=== PATIENT | female | born 1965 | race Hispanic/Latino ===

== ENCOUNTER 2025-02-17 22:05 | Inpatient (IN) | payer OTHER ==
[~2025-02-17] VITALS: Ht 157.5 cm; Wt 93.4 kg
[~2025-02-17 22:05] MED LIST: LOSARTAN POTASS25 MG PO; NAPROXEN250 MG PO
[2025-02-17 22:40] VITALS: RESP 18; TEMP 98.4
[2025-02-17 23:30] VITALS: PULSE 64
[2025-02-18] VITALS (11 sets, daily range): BP systolic 122–159; BP diastolic 67–88; PULSE 50–74; RESP 16–20; TEMP 97.4–98.9; O2SAT 96–100
[2025-02-18 00:06] LABS: BASOPHILS % 0.4 % (0.0-1.0); EOSINOPHILS # (AUTO) 0.2 (0.0-0.4); EOSINOPHILS % 2.2 % (0.0-6.0); HEMATOCRIT 37.1 % (34.2-44.1); HEMOGLOBIN 12.3 g/dL (12.0-16.0); LYMPHOCYTES # (AUTO) 3.8 (1.0-3.2); LYMPHOCYTES % 39.9 % (18.0-39.1); MEAN CORPUSCULAR HEMOGLOBIN 30.1 pg (28-32); MEAN CORPUSCULAR HGB CONC 33.2 g/dL (31-35); MEAN CORPUSCULAR VOLUME 90.9 fL (81-99); MONOCYTES # (AUTO) 0.8 (0.2-0.8); MONOCYTES % 8.3 % (4.4-11.3); NEUTROPHILS # (AUTO) 4.7 (2.1-6.9); PLATELET COUNT 304 x10e3/uL (140-360); RED BLOOD COUNT 4.08 x10e6/uL (3.6-5.1); RED CELL DISTRIBUTION WIDTH 13.2 % (11.7-14.4); WHITE BLOOD COUNT 9.53 x10e3/uL (4.8-10.8)
[2025-02-18] MEDS: Vancomycin IV 1 GM in SODIUM CHLORIDE 0.9% 250ML 250 ML IV SCH (00:19)
[2025-02-18 00:29] LABS: ALBUMIN 3.8 g/dL (3.5-5.0); BILIRUBIN,TOTAL 0.2 mg/dL (0.2-1.2); CALCIUM 9.2 mg/dL (8.4-10.2); CREATININE, SERUM 1.09 mg/dL (0.57-1.11); TOTAL PROTEIN 7.8 g/dL (6.5-8.1)
[2025-02-18] MEDS: Morphine 2mg Syringe 2 MG/ML SYR IV PRN (03:42)
[2025-02-18] MEDS ORDERED: OLMESARTAN MEDO20 MG PO (04:13)
[2025-02-18] MEDS ORDERED: HYDROCHLOROTH12.5 MG PO (04:13)
[2025-02-18] MEDS: ACETAMINOPHEN 325 MG TAB PO PRN (09:58)
[2025-02-19] VITALS (7 sets, daily range): BP systolic 118–130; BP diastolic 71–87; PULSE 51–72; RESP 18–19; TEMP 98.1–98.9; O2SAT 95–100
[2025-02-19 05:15] LABS: BASOPHILS # (AUTO) 0.1 (0.0-0.1); BASOPHILS % 0.6 % (0.0-1.0); EOSINOPHILS # (AUTO) 0.3 (0.0-0.4); EOSINOPHILS % 3.4 % (0.0-6.0); HEMATOCRIT 36.6 % (34.2-44.1); HEMOGLOBIN 12.2 g/dL (12.0-16.0); LYMPHOCYTES # (AUTO) 2.9 (1.0-3.2); LYMPHOCYTES % 34.1 % (18.0-39.1); MEAN CORPUSCULAR HEMOGLOBIN 30.2 pg (28-32); MEAN CORPUSCULAR HGB CONC 33.3 g/dL (31-35); MEAN CORPUSCULAR VOLUME 90.6 fL (81-99); MONOCYTES # (AUTO) 0.6 (0.2-0.8); MONOCYTES % 7.6 % (4.4-11.3); NEUTROPHILS # (AUTO) 4.6 (2.1-6.9); NEUTROPHILS % 54.1 % (38.7-80.0); PLATELET COUNT 306 x10e3/uL (140-360); RED BLOOD COUNT 4.04 x10e6/uL (3.6-5.1); RED CELL DISTRIBUTION WIDTH 12.9 % (11.7-14.4); WHITE BLOOD COUNT 8.44 x10e3/uL (4.8-10.8)
[2025-02-19 05:48] LABS: ALBUMIN 3.4 g/dL (3.5-5.0); ALBUMIN/GLOBULIN RATIO 0.9 (0.8-2.0); BILIRUBIN,TOTAL 0.6 mg/dL (0.2-1.2); CALCIUM 8.5 mg/dL (8.4-10.2); CREATININE, SERUM 1.04 mg/dL (0.57-1.11); TOTAL PROTEIN 7.1 g/dL (6.5-8.1)
[2025-02-19] MEDS: ONDANSETRON HCL INJ 2MG/ML 2ML 2 MG/ML VIAL IV PRN (21:32)
[2025-02-20] VITALS (8 sets, daily range): BP systolic 113–134; BP diastolic 61–82; PULSE 51–80; RESP 17–21; TEMP 97.9–99.5; O2SAT 95–100
[2025-02-20] MEDS ORDERED: HYDRALAZINE HCL 20 MG/ML VIAL IV PRN (00:45)
[2025-02-20] MEDS: OLMESARTAN 20 MG TAB PO SCH (08:44)
[2025-02-21] VITALS (9 sets, daily range): BP systolic 100–142; BP diastolic 52–78; PULSE 51–74; RESP 18–20; TEMP 97.6–98.3; O2SAT 95–100
[2025-02-22 04:00] VITALS: BP 112/68; PULSE 52; RESP 17; TEMP 97.5; O2SAT 94
[2025-02-22 06:10] LABS: BASOPHILS % 0.5 % (0.0-1.0); EOSINOPHILS # (AUTO) 0.4 (0.0-0.4); HEMATOCRIT 35.9 % (34.2-44.1); HEMOGLOBIN 11.7 g/dL (12.0-16.0); LYMPHOCYTES # (AUTO) 2.5 (1.0-3.2); LYMPHOCYTES % 31.9 % (18.0-39.1); MEAN CORPUSCULAR HEMOGLOBIN 30.3 pg (28-32); MEAN CORPUSCULAR HGB CONC 32.6 g/dL (31-35); MONOCYTES # (AUTO) 0.7 (0.2-0.8); MONOCYTES % 8.3 % (4.4-11.3); NEUTROPHILS # (AUTO) 4.3 (2.1-6.9); PLATELET COUNT 310 x10e3/uL (140-360); RED BLOOD COUNT 3.86 x10e6/uL (3.6-5.1); WHITE BLOOD COUNT 7.87 x10e3/uL (4.8-10.8)
[2025-02-22 06:37] LABS: ANION GAP 13.9 mmol/L (8-16); CALCIUM 8.7 mg/dL (8.4-10.2); POTASSIUM 3.9 mmol/L (3.5-5.1)
[2025-02-22] MEDS: DOXYCYCLINE HYCLATE TABLET 100 MG TAB PO SCH (08:39)
[2025-02-22] MEDS: CEFTRIAXONE 2 GM in SODIUM CHLORIDE 0.9% 100 ML IV SCH (08:41)
[2025-02-22 09:00] VITALS: BP 120/70; PULSE 52; RESP 17; TEMP 97.5; O2SAT 94
[2025-02-22 09:48] VITALS: BP 120/70; PULSE 58; RESP 17; TEMP 98.5; O2SAT 98
[2025-02-22 12:53] VITALS: BP 104/58; PULSE 55; RESP 16; TEMP 98.4; O2SAT 99
[2025-02-22 14:11] LABS: RHEUMATOID FACTOR 11.4 IU/mL (<14.0)
[2025-02-22 20:00] VITALS: BP 119/79; PULSE 57; RESP 18; TEMP 97.7; O2SAT 100
[2025-02-23] VITALS: BP 118/74; PULSE 60; RESP 19; TEMP 97.9; O2SAT 98
[2025-02-23 05:22] VITALS: BP 107/66; PULSE 51; RESP 16; TEMP 97; O2SAT 97
[2025-02-23 06:04] LABS: BASOPHILS # (AUTO) 0.1 (0.0-0.1); BASOPHILS % 0.8 % (0.0-1.0); EOSINOPHILS # (AUTO) 0.4 (0.0-0.4); EOSINOPHILS % 5.4 % (0.0-6.0); HEMATOCRIT 37.7 % (34.2-44.1); HEMOGLOBIN 12.4 g/dL (12.0-16.0); LYMPHOCYTES # (AUTO) 1.8 (1.0-3.2); LYMPHOCYTES % 25.5 % (18.0-39.1); MEAN CORPUSCULAR HEMOGLOBIN 30.2 pg (28-32); MEAN CORPUSCULAR HGB CONC 32.9 g/dL (31-35); MEAN CORPUSCULAR VOLUME 91.7 fL (81-99); MONOCYTES # (AUTO) 0.5 (0.2-0.8); MONOCYTES % 6.8 % (4.4-11.3); NEUTROPHILS # (AUTO) 4.4 (2.1-6.9); NEUTROPHILS % 61.4 % (38.7-80.0); PLATELET COUNT 316 x10e3/uL (140-360); RED BLOOD COUNT 4.11 x10e6/uL (3.6-5.1); RED CELL DISTRIBUTION WIDTH 12.8 % (11.7-14.4); WHITE BLOOD COUNT 7.19 x10e3/uL (4.8-10.8)
[2025-02-23 06:32] LABS: CALCIUM 9.1 mg/dL (8.4-10.2); CREATININE, SERUM 0.99 mg/dL (0.57-1.11)
[2025-02-23 07:30] VITALS: BP 115/69; PULSE 54; RESP 18; TEMP 98.2; O2SAT 97
[2025-02-23] MEDS: HYDROCHLOROTHIAZIDE 25 MG TAB PO SCH (08:26)
[2025-02-23 12:00] VITALS: BP 115/69; PULSE 56; RESP 20; TEMP 97.2; O2SAT 97
[2025-02-23] MEDS ORDERED: ZYVOX600 MG PO (14:45)
[2025-02-23] MEDS ORDERED: LINEZOLID 600 MG TAB PO SCH (17:00)
[2025-02-25 14:12] LABS: cANCA TITER <1:20 titer (Neg:<1:20)
[2025-02-25 15:18] LABS: ATYPICAL pANCA TITER <1:20 titer (Neg:<1:20); pANCA TITER <1:20 titer (Neg:<1:20)
== END 2025-02-23 16:41 | disposition home health service (06) | DRG 603 ==
LOC: ER 23:33 → ERHOLD 02-18 00:53 → MERGE 02-18 00:53 → MED/SURG2 02-18 02:39
PROVIDERS: ADMIT Internal Medicine; ATTEND Internal Medicine
DX: L03.115 Cellulitis of right lower limb (principal); I87.333 Chronic venous hypertension (idiopathic) with ulcer and inflammation of bilateral lower extremity; L97.918 Non-pressure chronic ulcer of unspecified part of right lower leg with other specified severity; I87.2 Venous insufficiency (chronic) (peripheral); I77.6 Arteritis, unspecified; I10 Essential (primary) hypertension; E66.9 Obesity, unspecified; Z68.37 Body mass index [BMI] 37.0-37.9, adult
CPT/HCPCS: 36415; 80048; 80053; 80202; 85025; 86021; 86039; 86140; 86225; 86431; 87040; 87071; 87205; 94799; 99252; 99284; J0696; J2270; J2405; J2543; J7050

== ENCOUNTER → 2025-03-08 | Outpatient (REF) | payer OTHER ==
[~2025-03-08] MED LIST changes: +HYDROCHLOROTH12.5 MG PO; +MINERAL OIL/PETROLAT/GLYCERI 6OZ BTL ONE; +OLMESARTAN MEDO20 MG PO; +ZYVOX600 MG PO
== END ==
LOC: MERGE 02-25 15:00 → WCC 09:59
PROVIDERS: ATTEND Internal Medicine Infectious Disease
DX: I87.331 Chronic venous hypertension (idiopathic) with ulcer and inflammation of right lower extremity (principal); L97.811 Non-pressure chronic ulcer of other part of right lower leg limited to breakdown of skin; S81.801D Unspecified open wound, right lower leg, subsequent encounter; R60.0 Localized edema

== ENCOUNTER → 2025-03-12 | Outpatient (REF) | payer OTHER ==
[~2025-03-12] MED LIST changes: +LIDOCAINE 1% W/EPINEPHRINE 20 ML VIAL ONE; +LIDOCAINE VISC 2% SOLN 15 ML UDC ONE; +LIDOCAINE/PRILOCAINE 2.5-2.5% KIT ONE; -MINERAL OIL/PETROLAT/GLYCERI 6OZ BTL ONE
== END ==
LOC: WCC 11:26
PROVIDERS: ATTEND Internal Medicine Infectious Disease
DX: I87.331 Chronic venous hypertension (idiopathic) with ulcer and inflammation of right lower extremity (principal); L97.811 Non-pressure chronic ulcer of other part of right lower leg limited to breakdown of skin; S81.801D Unspecified open wound, right lower leg, subsequent encounter; R60.0 Localized edema
CPT/HCPCS: 87071; 87075; 87102; 87116; 87205; 87206; 88305

== ENCOUNTER → 2025-03-16 | Outpatient (REF) | payer OTHER ==
[~2025-03-16] MED LIST changes: +COLLAGENASE OINTMENT 30 GM TUBE ONE; -LIDOCAINE 1% W/EPINEPHRINE 20 ML VIAL ONE
== END ==
LOC: WCC 12:26
PROVIDERS: ATTEND Internal Medicine Infectious Disease
DX: I87.331 Chronic venous hypertension (idiopathic) with ulcer and inflammation of right lower extremity (principal); L97.811 Non-pressure chronic ulcer of other part of right lower leg limited to breakdown of skin; S81.801D Unspecified open wound, right lower leg, subsequent encounter; R60.0 Localized edema; B96.89 Other specified bacterial agents as the cause of diseases classified elsewhere

== ENCOUNTER → 2025-03-17 | Outpatient (REF) | payer OTHER ==
[~2025-03-17] MED LIST changes: -COLLAGENASE OINTMENT 30 GM TUBE ONE; -LIDOCAINE VISC 2% SOLN 15 ML UDC ONE; -LIDOCAINE/PRILOCAINE 2.5-2.5% KIT ONE
== END ==
LOC: MRI 10:48
PROVIDERS: ATTEND Nurse Practitioner Family
DX: I87.331 Chronic venous hypertension (idiopathic) with ulcer and inflammation of right lower extremity (principal); L97.811 Non-pressure chronic ulcer of other part of right lower leg limited to breakdown of skin

== ENCOUNTER → 2025-03-18 | Outpatient (REF) | payer OTHER | LOC: WCC 09:45 | PROVIDERS: ATTEND Internal Medicine Infectious Disease | DX: I87.331 Chronic venous hypertension (idiopathic) with ulcer and inflammation of right lower extremity (principal); L97.811 Non-pressure chronic ulcer of other part of right lower leg limited to breakdown of skin; S81.801D Unspecified open wound, right lower leg, subsequent encounter; R60.0 Localized edema; B96.89 Other specified bacterial agents as the cause of diseases classified elsewhere ==

== ENCOUNTER → 2025-03-19 | Outpatient (REF) | payer OTHER ==
[~2025-03-19] MED LIST changes: +COLLAGENASE OINTMENT 30 GM TUBE ONE; +MINERAL OIL/PETROLAT/GLYCERI 6OZ BTL ONE
== END ==
LOC: WCC 10:26
PROVIDERS: ATTEND Internal Medicine Infectious Disease
DX: I87.331 Chronic venous hypertension (idiopathic) with ulcer and inflammation of right lower extremity (principal); L97.811 Non-pressure chronic ulcer of other part of right lower leg limited to breakdown of skin; S81.801D Unspecified open wound, right lower leg, subsequent encounter; R60.0 Localized edema; B96.89 Other specified bacterial agents as the cause of diseases classified elsewhere

== ENCOUNTER → 2025-03-22 | Outpatient (REF) | payer OTHER ==
[~2025-03-22] MED LIST changes: -COLLAGENASE OINTMENT 30 GM TUBE ONE; -MINERAL OIL/PETROLAT/GLYCERI 6OZ BTL ONE; +MUPIROCIN 2% OINT 22 GM TUBE ONE
== END ==
LOC: WCC 12:02
PROVIDERS: ATTEND Internal Medicine Infectious Disease
DX: I87.331 Chronic venous hypertension (idiopathic) with ulcer and inflammation of right lower extremity (principal); L97.811 Non-pressure chronic ulcer of other part of right lower leg limited to breakdown of skin; S81.801D Unspecified open wound, right lower leg, subsequent encounter; B96.89 Other specified bacterial agents as the cause of diseases classified elsewhere

== ENCOUNTER → 2025-03-24 | Outpatient (REF) | payer OTHER ==
[~2025-03-24] MED LIST changes: +COLLAGENASE OINTMENT 30 GM TUBE ONE; -MUPIROCIN 2% OINT 22 GM TUBE ONE
== END ==
LOC: WCC 09:10
PROVIDERS: ATTEND Internal Medicine Infectious Disease
DX: I87.331 Chronic venous hypertension (idiopathic) with ulcer and inflammation of right lower extremity (principal); L97.811 Non-pressure chronic ulcer of other part of right lower leg limited to breakdown of skin; S81.801D Unspecified open wound, right lower leg, subsequent encounter; R60.0 Localized edema; B96.89 Other specified bacterial agents as the cause of diseases classified elsewhere

== ENCOUNTER → 2025-03-26 | Outpatient (REF) | payer OTHER ==
[~2025-03-26] MED LIST changes: -COLLAGENASE OINTMENT 30 GM TUBE ONE
== END ==
LOC: WCC 10:42
PROVIDERS: ATTEND Internal Medicine Infectious Disease
DX: I87.331 Chronic venous hypertension (idiopathic) with ulcer and inflammation of right lower extremity (principal); L97.811 Non-pressure chronic ulcer of other part of right lower leg limited to breakdown of skin; S81.801D Unspecified open wound, right lower leg, subsequent encounter; R60.0 Localized edema; B96.89 Other specified bacterial agents as the cause of diseases classified elsewhere

== ENCOUNTER → 2025-03-29 | Outpatient (REF) | payer OTHER | LOC: WCC 11:25 | PROVIDERS: ATTEND Internal Medicine Infectious Disease | DX: I87.331 Chronic venous hypertension (idiopathic) with ulcer and inflammation of right lower extremity (principal); L97.811 Non-pressure chronic ulcer of other part of right lower leg limited to breakdown of skin; S81.801D Unspecified open wound, right lower leg, subsequent encounter; R60.0 Localized edema ==

== ENCOUNTER → 2025-03-31 | Outpatient (REF) | payer OTHER | LOC: WCC 09:26 | PROVIDERS: ATTEND Internal Medicine Infectious Disease | DX: I87.331 Chronic venous hypertension (idiopathic) with ulcer and inflammation of right lower extremity (principal); L97.811 Non-pressure chronic ulcer of other part of right lower leg limited to breakdown of skin; S81.801D Unspecified open wound, right lower leg, subsequent encounter; R60.0 Localized edema; B96.89 Other specified bacterial agents as the cause of diseases classified elsewhere ==

== ENCOUNTER → 2025-04-02 | Outpatient (REF) | payer OTHER | LOC: WCC 08:55 | PROVIDERS: ATTEND Internal Medicine Infectious Disease | DX: I87.331 Chronic venous hypertension (idiopathic) with ulcer and inflammation of right lower extremity (principal); L97.811 Non-pressure chronic ulcer of other part of right lower leg limited to breakdown of skin; S81.801D Unspecified open wound, right lower leg, subsequent encounter; R60.0 Localized edema ==

== ENCOUNTER → 2025-04-19 | Outpatient (REF) | payer OTHER | LOC: WCC 11:10 | PROVIDERS: ATTEND Internal Medicine Infectious Disease | DX: S81.801D Unspecified open wound, right lower leg, subsequent encounter (principal); R60.0 Localized edema | CPT/HCPCS: 87071; 87075; 87186; 87205 ==

== ENCOUNTER → 2025-04-21 | Outpatient (REF) | payer OTHER ==
[~2025-04-21] MED LIST changes: +COLLAGENASE OINTMENT 30 GM TUBE ONE; +MINERAL OIL/PETROLAT/GLYCERI 6OZ BTL ONE
== END ==
LOC: WCC 13:32
PROVIDERS: ATTEND Internal Medicine Infectious Disease
DX: S81.801D Unspecified open wound, right lower leg, subsequent encounter (principal); R60.0 Localized edema

== ENCOUNTER → 2025-04-23 | Outpatient (REF) | payer OTHER ==
[~2025-04-23] MED LIST changes: -COLLAGENASE OINTMENT 30 GM TUBE ONE; -MINERAL OIL/PETROLAT/GLYCERI 6OZ BTL ONE
== END ==
LOC: WCC 11:51
PROVIDERS: ATTEND Nurse Practitioner Family
DX: S81.801D Unspecified open wound, right lower leg, subsequent encounter (principal); S81.001D Unspecified open wound, right knee, subsequent encounter; R60.0 Localized edema

== ENCOUNTER → 2025-04-26 | Outpatient (CLI) | payer OTHER | LOC: WCC 13:48 | PROVIDERS: ATTEND Internal Medicine Infectious Disease | DX: I87.331 Chronic venous hypertension (idiopathic) with ulcer and inflammation of right lower extremity (principal); L97.811 Non-pressure chronic ulcer of other part of right lower leg limited to breakdown of skin; S81.001D Unspecified open wound, right knee, subsequent encounter; S81.801D Unspecified open wound, right lower leg, subsequent encounter; R60.0 Localized edema ==

== ENCOUNTER → 2025-04-28 | Outpatient (REF) | payer OTHER | LOC: WCC 11:26 | PROVIDERS: ATTEND Internal Medicine Infectious Disease | DX: I87.331 Chronic venous hypertension (idiopathic) with ulcer and inflammation of right lower extremity (principal); L97.811 Non-pressure chronic ulcer of other part of right lower leg limited to breakdown of skin; S81.001D Unspecified open wound, right knee, subsequent encounter; S81.801D Unspecified open wound, right lower leg, subsequent encounter; R60.0 Localized edema | CPT/HCPCS: 83036; 84134 ==

== ENCOUNTER → 2025-04-30 | Outpatient (REF) | payer OTHER | LOC: WCC 11:38 | PROVIDERS: ATTEND Internal Medicine Infectious Disease | DX: I87.331 Chronic venous hypertension (idiopathic) with ulcer and inflammation of right lower extremity (principal); L97.811 Non-pressure chronic ulcer of other part of right lower leg limited to breakdown of skin; S81.801D Unspecified open wound, right lower leg, subsequent encounter; R60.0 Localized edema ==

== ENCOUNTER → 2025-05-03 | Outpatient (REF) | payer OTHER | LOC: WCC 12:24 | PROVIDERS: ATTEND Internal Medicine Infectious Disease | DX: I87.331 Chronic venous hypertension (idiopathic) with ulcer and inflammation of right lower extremity (principal); L97.811 Non-pressure chronic ulcer of other part of right lower leg limited to breakdown of skin; S81.801D Unspecified open wound, right lower leg, subsequent encounter; R60.0 Localized edema; B95.62 Methicillin resistant Staphylococcus aureus infection as the cause of diseases classified elsewhere ==

== ENCOUNTER → 2025-05-05 | Outpatient (REF) | payer OTHER | LOC: WCC 13:55 | PROVIDERS: ATTEND Internal Medicine Infectious Disease | DX: I87.331 Chronic venous hypertension (idiopathic) with ulcer and inflammation of right lower extremity (principal); L97.811 Non-pressure chronic ulcer of other part of right lower leg limited to breakdown of skin; S81.801D Unspecified open wound, right lower leg, subsequent encounter; R60.0 Localized edema; B95.62 Methicillin resistant Staphylococcus aureus infection as the cause of diseases classified elsewhere ==

== ENCOUNTER → 2025-05-10 | Outpatient (REF) | payer OTHER ==
[~2025-05-10] MED LIST changes: +COLLAGENASE OINTMENT 30 GM TUBE ONE; +LIDOCAINE VISC 2% SOLN 15 ML UDC ONE; +LIDOCAINE/PRILOCAINE 2.5-2.5% KIT ONE; +MINERAL OIL/PETROLAT/GLYCERI 6OZ BTL ONE
== END ==
LOC: WCC 11:14
PROVIDERS: ATTEND Internal Medicine Infectious Disease
DX: I87.331 Chronic venous hypertension (idiopathic) with ulcer and inflammation of right lower extremity (principal); L97.811 Non-pressure chronic ulcer of other part of right lower leg limited to breakdown of skin; S81.801D Unspecified open wound, right lower leg, subsequent encounter; R60.0 Localized edema; B95.62 Methicillin resistant Staphylococcus aureus infection as the cause of diseases classified elsewhere

== ENCOUNTER → 2025-05-13 | Outpatient (REF) | payer OTHER ==
[~2025-05-13] MED LIST changes: -COLLAGENASE OINTMENT 30 GM TUBE ONE; -LIDOCAINE VISC 2% SOLN 15 ML UDC ONE; -LIDOCAINE/PRILOCAINE 2.5-2.5% KIT ONE; -MINERAL OIL/PETROLAT/GLYCERI 6OZ BTL ONE
== END ==
LOC: WCC 15:24
PROVIDERS: ATTEND Internal Medicine Infectious Disease
DX: I87.331 Chronic venous hypertension (idiopathic) with ulcer and inflammation of right lower extremity (principal); L97.811 Non-pressure chronic ulcer of other part of right lower leg limited to breakdown of skin; S81.001D Unspecified open wound, right knee, subsequent encounter; S81.801D Unspecified open wound, right lower leg, subsequent encounter; R60.0 Localized edema; B95.62 Methicillin resistant Staphylococcus aureus infection as the cause of diseases classified elsewhere

== ENCOUNTER → 2025-05-17 | Outpatient (REF) | payer OTHER | LOC: WCC 11:07 | PROVIDERS: ATTEND Internal Medicine Infectious Disease | DX: I87.331 Chronic venous hypertension (idiopathic) with ulcer and inflammation of right lower extremity (principal); L97.811 Non-pressure chronic ulcer of other part of right lower leg limited to breakdown of skin; S81.801D Unspecified open wound, right lower leg, subsequent encounter; S81.001D Unspecified open wound, right knee, subsequent encounter; R60.0 Localized edema; B95.62 Methicillin resistant Staphylococcus aureus infection as the cause of diseases classified elsewhere ==

== ENCOUNTER → 2025-05-19 | Outpatient (REF) | payer OTHER | LOC: WCC 11:57 | PROVIDERS: ATTEND Internal Medicine Infectious Disease | DX: I87.331 Chronic venous hypertension (idiopathic) with ulcer and inflammation of right lower extremity (principal); L97.811 Non-pressure chronic ulcer of other part of right lower leg limited to breakdown of skin; S81.001D Unspecified open wound, right knee, subsequent encounter; S81.801D Unspecified open wound, right lower leg, subsequent encounter; R60.0 Localized edema; B95.62 Methicillin resistant Staphylococcus aureus infection as the cause of diseases classified elsewhere ==

== ENCOUNTER → 2025-05-21 | Outpatient (REF) | payer OTHER | LOC: WCC 09:38 | PROVIDERS: ATTEND Internal Medicine Infectious Disease | DX: I87.331 Chronic venous hypertension (idiopathic) with ulcer and inflammation of right lower extremity (principal); L97.811 Non-pressure chronic ulcer of other part of right lower leg limited to breakdown of skin; S81.001D Unspecified open wound, right knee, subsequent encounter; S81.801D Unspecified open wound, right lower leg, subsequent encounter; R60.0 Localized edema; B95.62 Methicillin resistant Staphylococcus aureus infection as the cause of diseases classified elsewhere ==

== ENCOUNTER → 2025-05-24 | Outpatient (REF) | payer OTHER | LOC: WCC 11:00 | PROVIDERS: ATTEND Internal Medicine Infectious Disease | DX: I87.331 Chronic venous hypertension (idiopathic) with ulcer and inflammation of right lower extremity (principal); L97.811 Non-pressure chronic ulcer of other part of right lower leg limited to breakdown of skin; S81.001D Unspecified open wound, right knee, subsequent encounter; S81.801D Unspecified open wound, right lower leg, subsequent encounter; R60.0 Localized edema; B95.62 Methicillin resistant Staphylococcus aureus infection as the cause of diseases classified elsewhere ==

== ENCOUNTER → 2025-05-26 | Outpatient (REF) | payer OTHER | LOC: WCC 09:46 | PROVIDERS: ATTEND Internal Medicine Infectious Disease | DX: I87.331 Chronic venous hypertension (idiopathic) with ulcer and inflammation of right lower extremity (principal); L97.811 Non-pressure chronic ulcer of other part of right lower leg limited to breakdown of skin; S81.001D Unspecified open wound, right knee, subsequent encounter; S81.801D Unspecified open wound, right lower leg, subsequent encounter; R60.0 Localized edema; B95.62 Methicillin resistant Staphylococcus aureus infection as the cause of diseases classified elsewhere ==

== ENCOUNTER → 2025-05-28 | Outpatient (REF) | payer OTHER | LOC: WCC 10:26 | PROVIDERS: ATTEND Internal Medicine Infectious Disease | DX: I87.331 Chronic venous hypertension (idiopathic) with ulcer and inflammation of right lower extremity (principal); L97.811 Non-pressure chronic ulcer of other part of right lower leg limited to breakdown of skin; S81.001D Unspecified open wound, right knee, subsequent encounter; S81.801D Unspecified open wound, right lower leg, subsequent encounter; R60.0 Localized edema; B95.62 Methicillin resistant Staphylococcus aureus infection as the cause of diseases classified elsewhere ==

== ENCOUNTER → 2025-05-31 | Outpatient (REF) | payer OTHER ==
[2025-05-31 14:48] LABS: BASOPHILS % 0.7 % (0.0-1.0); EOSINOPHILS % 2.6 % (0.0-6.0); LYMPHOCYTES % 44.6 % (18.0-39.1); MONOCYTES % 7.9 % (4.4-11.3); NEUTROPHILS % 44.0 % (38.7-80.0); RED CELL DISTRIBUTION WIDTH 16.5 % (11.7-14.4)
[2025-06-01 16:33] LABS: EST GLOMERULAR FILTRATION RATE 35.0 ML/MIN (>=60)
== END ==
LOC: WCC 10:30
PROVIDERS: ATTEND Internal Medicine Infectious Disease
DX: I87.331 Chronic venous hypertension (idiopathic) with ulcer and inflammation of right lower extremity (principal); L97.811 Non-pressure chronic ulcer of other part of right lower leg limited to breakdown of skin; S81.801D Unspecified open wound, right lower leg, subsequent encounter
CPT/HCPCS: 36415; 80048; 83880; 85025

== ENCOUNTER → 2025-06-02 | Outpatient (REF) | payer OTHER | LOC: WCC 09:24 | PROVIDERS: ATTEND Internal Medicine Infectious Disease | DX: I87.331 Chronic venous hypertension (idiopathic) with ulcer and inflammation of right lower extremity (principal); L97.811 Non-pressure chronic ulcer of other part of right lower leg limited to breakdown of skin; S81.001D Unspecified open wound, right knee, subsequent encounter; S81.801D Unspecified open wound, right lower leg, subsequent encounter; R60.0 Localized edema; B95.62 Methicillin resistant Staphylococcus aureus infection as the cause of diseases classified elsewhere ==

== ENCOUNTER → 2025-06-04 | Outpatient (REF) | payer OTHER | LOC: WCC 08:40 | PROVIDERS: ATTEND Internal Medicine Infectious Disease | DX: I87.331 Chronic venous hypertension (idiopathic) with ulcer and inflammation of right lower extremity (principal); L97.811 Non-pressure chronic ulcer of other part of right lower leg limited to breakdown of skin; S81.801D Unspecified open wound, right lower leg, subsequent encounter ==

== ENCOUNTER → 2025-06-07 | Outpatient (REF) | payer OTHER | LOC: WCC 13:50 | PROVIDERS: ATTEND Internal Medicine Infectious Disease | DX: I87.331 Chronic venous hypertension (idiopathic) with ulcer and inflammation of right lower extremity (principal); L97.811 Non-pressure chronic ulcer of other part of right lower leg limited to breakdown of skin; S81.801D Unspecified open wound, right lower leg, subsequent encounter ==

== ENCOUNTER → 2025-06-09 | Outpatient (REF) | payer OTHER | LOC: WCC 15:04 | PROVIDERS: ATTEND Internal Medicine Infectious Disease | DX: I87.331 Chronic venous hypertension (idiopathic) with ulcer and inflammation of right lower extremity (principal); L97.811 Non-pressure chronic ulcer of other part of right lower leg limited to breakdown of skin; S81.001D Unspecified open wound, right knee, subsequent encounter; S81.801D Unspecified open wound, right lower leg, subsequent encounter; B95.62 Methicillin resistant Staphylococcus aureus infection as the cause of diseases classified elsewhere | CPT/HCPCS: 87102; 87116; 87206 ==

== ENCOUNTER → 2025-06-11 | Outpatient (REF) | payer OTHER | LOC: WCC 09:01 | PROVIDERS: ATTEND Internal Medicine Infectious Disease | DX: S81.801D Unspecified open wound, right lower leg, subsequent encounter (principal) ==

== ENCOUNTER → 2025-06-14 | Outpatient (REF) | payer OTHER | LOC: WCC 09:53 | PROVIDERS: ATTEND Internal Medicine Infectious Disease | DX: I87.331 Chronic venous hypertension (idiopathic) with ulcer and inflammation of right lower extremity (principal); L97.811 Non-pressure chronic ulcer of other part of right lower leg limited to breakdown of skin; S81.001D Unspecified open wound, right knee, subsequent encounter; S81.801D Unspecified open wound, right lower leg, subsequent encounter; R60.0 Localized edema; B95.62 Methicillin resistant Staphylococcus aureus infection as the cause of diseases classified elsewhere ==

== ENCOUNTER → 2025-06-16 | Outpatient (REF) | payer OTHER | LOC: WCC 15:03 | PROVIDERS: ATTEND Internal Medicine Infectious Disease | DX: I87.331 Chronic venous hypertension (idiopathic) with ulcer and inflammation of right lower extremity (principal); L97.811 Non-pressure chronic ulcer of other part of right lower leg limited to breakdown of skin; S81.801D Unspecified open wound, right lower leg, subsequent encounter ==

== ENCOUNTER → 2025-06-18 | Outpatient (REF) | payer OTHER | LOC: WCC 12:04 | PROVIDERS: ATTEND Internal Medicine Infectious Disease | DX: S81.801D Unspecified open wound, right lower leg, subsequent encounter (principal); S81.001D Unspecified open wound, right knee, subsequent encounter; R60.0 Localized edema; B95.62 Methicillin resistant Staphylococcus aureus infection as the cause of diseases classified elsewhere ==

== ENCOUNTER → 2025-06-21 | Outpatient (REF) | payer OTHER | LOC: WCC 10:46 | PROVIDERS: ATTEND Internal Medicine Infectious Disease | DX: I87.331 Chronic venous hypertension (idiopathic) with ulcer and inflammation of right lower extremity (principal); L97.811 Non-pressure chronic ulcer of other part of right lower leg limited to breakdown of skin; S81.001D Unspecified open wound, right knee, subsequent encounter; S81.801D Unspecified open wound, right lower leg, subsequent encounter; R60.0 Localized edema; B95.62 Methicillin resistant Staphylococcus aureus infection as the cause of diseases classified elsewhere ==

== ENCOUNTER → 2025-06-25 | Outpatient (REF) | payer OTHER | LOC: WCC 10:09 | PROVIDERS: ATTEND Internal Medicine Infectious Disease | DX: S81.001D Unspecified open wound, right knee, subsequent encounter (principal) ==

== ENCOUNTER → 2025-06-28 | Outpatient (REF) | payer OTHER | LOC: WCC 12:42 | PROVIDERS: ATTEND Internal Medicine Infectious Disease | DX: S81.001D Unspecified open wound, right knee, subsequent encounter (principal) ==

== ENCOUNTER → 2025-07-08 | Outpatient (REF) | payer OTHER | LOC: WCC 15:12 | PROVIDERS: ATTEND Internal Medicine Infectious Disease | DX: S81.001D Unspecified open wound, right knee, subsequent encounter (principal) ==

== ENCOUNTER → 2025-07-19 | Outpatient (REF) | payer OTHER | LOC: WCC 11:59 | PROVIDERS: ATTEND Internal Medicine Infectious Disease | DX: S81.001D Unspecified open wound, right knee, subsequent encounter (principal) ==

== ENCOUNTER → 2025-07-29 | Outpatient (REF) | payer OTHER | LOC: WCC 14:09 | PROVIDERS: ATTEND Internal Medicine Infectious Disease | DX: S81.001D Unspecified open wound, right knee, subsequent encounter (principal) ==

== ENCOUNTER 2025-08-26 20:48 | Emergency (ER) | payer OTHER ==
[~2025-08-26] VITALS: Ht 157.5 cm; Wt 93.4 kg
[2025-08-26 20:52] VITALS: TEMP 98.4
[2025-08-26] MEDS: Morphine 4mg INJECTION 4 MG/ML INJ IV STA (21:35)
[2025-08-26] MEDS: ONDANSETRON HCL INJ 2MG/ML 2ML 2 MG/ML VIAL IV STA (21:35)
[2025-08-26 21:47] LABS: BASOPHILS % 0.9 % (0.0-1.0); EOSINOPHILS % 3.5 % (0.0-6.0); LYMPHOCYTES % 42.9 % (18.0-39.1); MONOCYTES % 12.6 % (4.4-11.3); NEUTROPHILS % 39.9 % (38.7-80.0); RED CELL DISTRIBUTION WIDTH 13.2 % (11.7-14.4)
[2025-08-26 21:51] LABS: INR 1.24
[2025-08-26 22:00] LABS: EST GLOMERULAR FILTRATION RATE 37.0 ML/MIN (>=60)
[2025-08-26] MEDS ORDERED: CALAMINE LOTIO177 ML TOP (22:16)
[2025-08-26] MEDS ORDERED: ACYCLOVIR800 MG PO (22:16)
[2025-08-26] MEDS ORDERED: ULTRAM 50MG50 MG PO (22:16)
[2025-08-26 22:30] VITALS: PULSE 64; RESP 16; O2SAT 100
== END 2025-08-26 22:48 | disposition home or self-care (01) ==
LOC: ER 20:51
DX: B02.9 Zoster without complications (principal); I10 Essential (primary) hypertension; M32.9 Systemic lupus erythematosus, unspecified; M06.9 Rheumatoid arthritis, unspecified; E66.01 Morbid (severe) obesity due to excess calories
CPT/HCPCS: 36415; 80053; 85025; 85610; 85730; 99283; J2270; J2405